=== PATIENT | male | born 1995 | race Caucasian/White ===

== ENCOUNTER 2024-10-28 22:54 | Emergency (ER) | payer MEDICAID, OTHER ==
[~2024-10-28] VITALS: Ht 172.7 cm; Wt 71.8 kg
[2024-10-28 23:02] VITALS: BP 116/70; PULSE 105; RESP 18; TEMP 98.1; O2SAT 98
[2024-10-29] MEDS: SULFAMETHOX/TRIMETH DS 800-160 MG/TABLET PO ONE (01:06)
[2024-10-29] MEDS ORDERED: SULF-261 PO (01:21)
== END 2024-10-29 02:29 | disposition home or self-care (01) ==
LOC: EMS 23:01
DX: L02.511 Cutaneous abscess of right hand (principal); F15.10 Other stimulant abuse, uncomplicated
CPT/HCPCS: 99283